=== PATIENT | female | born 1965 | race Caucasian/White ===

== ENCOUNTER 2017-04-18 12:12 | Outpatient (CLI) | payer BC ==
[~2017-04-18] VITALS: Ht 157.5 cm; Wt 79.5 kg
[2017-04-18 12:30] VITALS: BP 137/76; PULSE 79; RESP 16; Ht 157.5 cm; Wt 79.5 kg
[2017-04-18] MEDS ORDERED: IBUP-1542 PO (12:30)
[2017-04-18] MEDS ORDERED: AMOX1TAB10 PO (12:30)
--- NOTE | 2017-04-18 13:26 | CONS ---
DATE OF CONSULTATION: 04/18/2017 [facility] INITIAL OUTPATIENT CONSULTATION NOTE PLACE OF SERVICE: [facility] at [facility]. Dear Dr. Wilcox: Thank you again for allowing us to participate in the care of this very pleasant lady and her wonderful family. HISTORY OF PRESENT ILLNESS: The patient is a very pleasant 51-year-old lady with a few comorbidities, presenting after a visit to [facility] on 04/15/2017 for right upper quadrant abdominal pain, which was diagnosed as symptomatic cholelithiasis. A right upper quadrant abdominal ultrasound was done that showed cholelithiasis with gallbladder wall thickening and positive sonographic Thomas sign, concerning for cholecystitis. There was also mild hepatic steatosis. The patient's other clinical parameters were normal including no fevers and a normal white blood cell count and normal labs. For this reason, I was contacted regarding possible expedited outpatient management of this issue and we scheduled her visit with us today. The patient describes approximately a 3-year history of progressively worsening abdominal pain which is mainly in the mid upper and right upper quadrants, exacerbated with spicy and greasy foods. The pain lasts for hours or days at times. No other major abdominal pains. She has had 3 C-sections for her children, all of which were done under epidural anesthesia. No other abdominal surgeries in the past. No prior other issues with her liver, pancreas or biliary system in the past. No other major complaints. There does seem to be a history of blood in the stool years ago which has no longer been the case. She occasionally has diarrhea and constipation, especially with spicy food intake. COMORBIDITIES: 1. BMI of 32.1. 2. Possible hepatic steatosis seen on ultrasound [facility] 04/15/2017. 3. History of exposure to tuberculosis. 4. C-sections times 3. ALLERGIES: NO KNOWN DRUG ALLERGIES. MEDICATIONS: Vitamins. SOCIAL HISTORY: Patient lives with her family, has 3 boys. She works as a warehouse worker. No reported alcohol, tobacco or intravenous drug use. FAMILY HISTORY: There is history of heart disease as well as hypertension in the family, but no mention of other major medical, surgical or oncologic problems. REVIEW OF SYSTEMS: Patient reported having to sleep on multiple pillows at night and gets up in the middle of the night to urinate. Some issues with swelling of the feet occasionally and chest pain mainly when she is nervous. No major pulmonary symptoms. She does feel gassy at times and feels indigestion and has history of hemorrhoids. She reported taking anticoagulants in her intake form, but there does not seem to be any medications listed that would indicate and corroborate that history. PHYSICAL EXAMINATION: GENERAL: The patient appears to be a very pleasant lady of descent, appearing stated age, sitting in a chair comfortably and in no acute distress. Her BMI is 32.1. VITAL SIGNS: Blood pressure is 137/76 and otherwise the rest of her vital signs are normal. HEENT: Head is normocephalic and atraumatic. Her extraocular muscles and hearing are grossly intact bilaterally and symmetrically. Her sclerae are nonicteric. Her oral cavity is clear and her oral mucosa appeared to be pink and moist. She has relatively good dentition without any significant missing teeth. NECK: Supple. There is no lymphadenopathy or JVD. There is no submental, submandibular or supraclavicular lymphadenopathy. CHEST: Rises symmetrically with each breath, and she is breathing comfortably. There are no audible wheezes, rales or rhonchi in the gross exam. Her carotid pulses are palpable bilaterally and symmetrically in her neck. HEART: Radial pulses palpable on the right wrist. EXTREMITIES: Lower extremities contain no significant pitting edema bilaterally and symmetrically. ABDOMEN: Soft, nontender and nondistended. There is mild discomfort in the right upper quadrant to deep pressure. There is no organomegaly, caput medusae , engorged subcutaneous veins, or ascites. There are no peritoneal signs or guarding. SKIN: Appears to be pink and feels warm to touch. NEUROLOGIC: She is awake, alert, and follows commands appropriately. LABORATORY DATA: [facility] on 04/15/2017 demonstrates INR 1.1, normal white blood cell count. Platelet count 309, creatinine 0.60, albumin 4.0. Total bilirubin 0.6, alkaline phosphatase 52, AST 30, ALT 24, lipase 19. Troponin normal. IMAGING: Right upper quadrant ultrasound findings were reviewed above. ASSESSMENT AND PLAN: A very pleasant 51-year-old lady with symptomatic cholelithiasis and possible chronic cholecystitis who is otherwise an adequate surgical candidate for a laparoscopic, possible open cholecystectomy. I described the reasoning behind my recommendation and reviewed the operation in detail including the risks, benefits and alternatives with the patient and her son and answered all of her questions. The patient and family appeared to understand and agree with the plan. With above assessments, I have recommended the following: Schedule patient for expedited elective laparoscopic, possible open cholecystectomy. Thank you again for allowing us to participate in the care of this very pleasant lady and her wonderful family. If there are any questions, please feel free to contact me at [phone]. Risk of presenting problem: Moderate risk. Complexity of decision making: Moderate complexity. Dictated By: YASMANI MESSINA/BIGG Conf#: [id number] DID#: [id number] CC: Alek Wilcox MD;*EndCC* MTDD
== END 2017-04-18 16:31 | disposition home or self-care (01) ==
LOC: HPC 12:12
PROVIDERS: ATTEND Transplant Surgery
DX: K80.20 Calculus of gallbladder without cholecystitis without obstruction (principal)
CPT/HCPCS: G0463

== ENCOUNTER 2017-05-16 10:08 | Outpatient (CLI) | payer BC ==
[~2017-05-16] VITALS: Ht 157.5 cm; Wt 77.7 kg
[~2017-05-16 10:08] MED LIST: AMOX1TAB10 PO; IBUP-1542 PO
[2017-05-16 10:14] VITALS: BP 123/67; PULSE 82; RESP 16; Ht 157.5 cm; Wt 77.7 kg
--- NOTE | 2017-05-16 11:31 | PN ---
DATE: 05/16/2017 [facility] PROGRESS NOTE PLACE OF SERVICE: [facility] at [facility]. DATE: 05/16/2017 SUBJECTIVE: The patient returns today after undergoing semi-elective laparoscopic cholecystectomy at [facility] for what was eventually found to be chronic cholecystitis with cholelithiasis on 04/27/2017. The patient is doing well without any major complaints of pain and has been eating normal. She has mild discomfort with spicy foods and occasionally has discomfort with other types of foods, but it does not happen on a frequent basis. She is under the impression that her overall pain has improved since the operation. OBJECTIVE VITAL SIGNS: BMI 31.3. Vital signs are normal with slightly high blood pressure at 123/67. ABDOMEN: Soft, nontender and nondistended. There are well-healed incisions that do not appear to have any obvious evidence of erythema, edema, discharge or hernia. There is no organomegaly, caput medusae, or engorged subcutaneous veins. There are no peritoneal signs or guarding. SKIN: Appears to be pink and feels warm to touch. NEUROLOGIC: She is awake, alert, and follows commands appropriately. IMPRESSION AND PLAN: A very pleasant 51-year-old lady status post laparoscopic cholecystectomy 03/2017 at [facility] for chronic cholelithiasis and cholelithiasis. The patient appears to be doing very well postoperatively without any obvious postoperative major complications or wound problems. Her symptoms appear to be slightly improved, although there is still a chance that she has other issues such as gastritis or ulcer disease, H. pylori infection or other reasons for having discomfort with certain types of foods. Since she is so fresh out of surgery, I recommended that we wait another month or 2, and if by June she still has the same issues, for her to perhaps be seen by a window shade ring sewer with consideration for upper endoscopy. From my standpoint, the patient is otherwise doing very well and can be released to the excellent care of her primary care physician team. I explained all of this to the patient (no family in the room) and answered all questions. The patient appeared to understand and agreed with plans. With the above assessments, I have recommended the followin. Continue healthy lifestyle with goal of bringing the BMI between 18 and 24. 2. Follow up with primary care physician as scheduled. 3. Consideration for gastroenterology consultation if the patient is still having symptoms related to abdominal discomfort with eating. Thank you again for allowing us to participate in the care of this very pleasant lady and her wonderful family. If there are any questions, please feel free to contact me at [phone]. Nature of original presenting problem: High risk. Complexity of decision making of the original problem: Moderate complexity. Dictated By: YASMANI MESSINA/BIGG Conf#: [id number] DID#: [id number] MTDD
== END 2017-05-16 16:35 | disposition home or self-care (01) ==
LOC: HPC 10:08
PROVIDERS: ATTEND Transplant Surgery
DX: K80.10 Calculus of gallbladder with chronic cholecystitis without obstruction (principal)
CPT/HCPCS: G0463